=== PATIENT | male | born 1990 | race Caucasian/White ===

== ENCOUNTER 2019-12-05 10:03 | Emergency (ER) | payer SELFPAY ==
[2019-12-05] MEDS ORDERED: Tetracaine HCl/PF 0.5% 4 ML Bottle EYEBOTH ONE (10:07)
--- NOTE | 2019-12-05 10:09 | EDM.PDOC ---
ED HPI GENERAL MEDICAL PROBLEM - General Chief Complaint: Eye Problems Stated Complaint: IRRITATION IN EYE Time Seen by Provider: 12/05/19 10:04 Source of Information: Reports: Patient History Limitations: Reports: No Limitations - History of Present Illness INITIAL COMMENTS - FREE TEXT/NARRATIVE: HISTORY AND PHYSICAL: History of present illness: Patient is a 28-year-old male who presents to the emergency room with complaints of irritation of his right thigh. He states he noticed some irritation on Monday which has progressively gotten worse. He states over the past 2 days he has had some drainage and crusty discharge from the eye. He has tried some [id number] Benadryl which he reports helped with some of the swelling around the eye but returned the next day. He denies any contact lens usage. He denies any visual change or ocular pain with movement. He denies any possible exposure to foreign body such as welding debris. Patient denies any fever, chills, headache, change in vision, syncope or near syncope. Denies any chest pain, back pain, shortness of breath or cough. Denies any GI or symptoms. Review of systems: As per history of present illness and below otherwise all systems reviewed and negative. Past medical history: As per history of present illness and as reviewed below otherwise noncontributory. Surgical history: As per history of present illness and as reviewed below otherwise noncontributory. Social history: See social history for further information Family history: As per history of present illness and as reviewed below otherwise noncontributory. Physical exam: General: Well-developed and well-nourished 28-year-old male. Alert and oriented. Nontoxic-appearing and in no acute distress. HEENT: Atraumatic, normocephalic, pupils equal and reactive bilaterally, negative for conjunctival pallor or scleral icterus, sclera injection of the right, pain crusty drainage noted along the lower lash line of the right, mucous membranes moist, TMs normal bilaterally, throat clear, neck supple, nontender, trachea midline. No drooling or trismus noted. No meningeal signs. No hot potato voice noted. Lungs: Clear to auscultation, breath sounds equal bilaterally. Heart: S1S2, regular rate and rhythm without overt murmur Abdomen: Soft, nondistended, nontender. Skin: Intact, warm, dry. No lesions or rashes noted. Extremities: Atraumatic, moves all extremities per self without difficulty or deficits. Neurovascular unremarkable. Neuro: Awake, alert, oriented. Cranial nerves II through XII unremarkable. Cerebellum unremarkable. Motor and sensory unremarkable throughout. Exam nonfocal. Notes: Visual acuity is within normal limits. Tetracaine and fluorescein eye exam was completed. He does have a corneal abrasion at the 8 to 10 o'clock position on the sclera. No foreign body noted. Erythromycin ointment was provided with education while here. We discussed the need to follow-up with ophthalmology if symptoms do not improve or worsen. Medication and supportive care measures were reviewed and discussed. Voices understanding and is agreeable to plan of care. Denies any further questions or concerns at this time. Diagnostics: Eye exam Therapeutics: Tetracaine, Erythromycin ointment Prescription: Erythromycin ointment Impression: Conjunctivitis, right Corneal Abrasion, right Plan: 1. Good handwashing; avoid rubbing your eyes or touching the eye dropper in the eye. 2. Apply the ointment 5 x daily or every 4 hours while awake. 3. As we discussed, follow up with ophthalmology. 4. Return to the ED as needed as discussed. Definitive disposition and diagnosis as appropriate pending reevaluation and review of above. Right Eye Pain Score (Numeric/FACES): 6 - Related Data Allergies Allergy/AdvReac Type Severity Reaction Status Date / Time amoxicillin Allergy Swelling Verified 12/05/19 10:13 Penicillins Allergy Swelling Verified 12/05/19 10:13 Home Meds: Home Meds Erythromycin Base [Erythromycin 0.5% Ophth Oint] 1 applic OP Q4H #1 tube [Rx] ED ROS GENERAL - Review of Systems Review Of Systems: Comprehensive ROS is negative, except as noted in HPI. ED EXAM GENERAL W FULL EYE - Physical Exam Exam: See Below (See dictation) Course - Vital Signs Last Recorded V/S: Last Vital Signs Temp 97.2 F 12/05/19 10:15 Pulse 88 12/05/19 10:45 Resp 18 12/05/19 10:45 BP 144/83 H 12/05/19 10:45 Pulse Ox 98 12/05/19 10:45 - Orders/Labs/Meds Meds: Medications Discontinued Medications Generic Name Dose Route Start Last Admin Trade Name Freq PRN Reason Stop Dose Admin Erythromycin 1 gm 12/05/19 10:25 12/05/19 10:44 Erythromycin 0.5% Ophth Oint EYERT 12/05/19 10:26 1 gm ONETIME ONE Administration Tetracaine HCl 1 ml 12/05/19 10:07 12/05/19 10:44 Tetracaine 0.5% Steri-Unit [place] EYEBOTH 12/05/19 10:08 2 drop ASDIRECTED ONE Administration Departure - Departure Time of Disposition: 10:28 Disposition: Home, Self-Care 01 Clinical Impression: Conjunctivitis Qualifiers: Conjunctivitis type: acute Acute conjunctivitis type: bacterial Laterality: right Qualified Code(s): H10.31 - Unspecified acute conjunctivitis, right eye Corneal abrasion Qualifiers: Encounter type: initial encounter Laterality: right Qualified Code(s): S05.01XA - Injury of conjunctiva and corneal abrasion without foreign body, right eye, initial encounter - Discharge Information Prescriptions: Erythromycin Base [Erythromycin 0.5% Ophth Oint] 1 applic OP Q4H #1 tube Instructions: Bacterial Conjunctivitis, Adult, [id number] Referrals: PCP,None [Primary Care Provider] - Forms: ED Department Discharge Additional Instructions: The following information is given to patients seen in the emergency department who are being discharged to home. This information is to outline your options for follow-up care. We provide all patients seen in our emergency department with a follow-up referral. The need for follow-up, as well as the timing and circumstances, are variable depending upon the specifics of your emergency department visit. If you don't have a primary care physician on staff, we will provide you with a referral. We always advise you to contact your personal physician following an emergency department visit to inform them of the circumstance of the visit and for follow-up with them and/or the need for any referrals to a consulting specialist. The emergency department will also refer you to a specialist when appropriate. This referral assures that you have the opportunity for follow-up care with a specialist. All of these measure are taken in an effort to provide you with optimal care, which includes your follow-up. Under all circumstances we always encourage you to contact your private physician who remains a resource for coordinating your care. When calling for follow-up care, please make the office aware that this follow-up is from your recent emergency room visit. If for any reason you are refused follow-up, please contact the [facility] Emergency Department at and asked to speak to the emergency department charge nurse. [facility] [address] [place] [address] [address] 1. Good handwashing; avoid rubbing your eyes or touching the eye dropper in the eye. 2. Apply the ointment 5 x daily or every 4 hours while awake. 3. As we discussed, follow up with ophthalmology. 4. Return to the ED as needed as discussed. Sepsis Event Note - Focused Exam Vital Signs: Vital Signs Temp Pulse Resp BP Pulse Ox 12/05/19 10:45 88 18 144/83 H 98 12/05/19 10:15 97.2 F 64 16 143/73 H 99 Date Exam was Performed: 12/05/19 Time Exam was Performed: 10:47
[2019-12-05] MEDS ORDERED: Erythromycin Base 0.5% Ophth Oint 1 GM Tube EYERT ONE (10:25)
== END 2019-12-05 10:53 | disposition home or self-care (01) ==
LOC: MW.ED 10:03
DX: S05.01XA Injury of conjunctiva and corneal abrasion without foreign body, right eye, initial encounter (principal); H10.31 Unspecified acute conjunctivitis, right eye; X58.XXXA Exposure to other specified factors, initial encounter
CPT/HCPCS: 99283; A9270